=== PATIENT | female | born 1935 | race Caucasian/White ===

== ENCOUNTER → 2016-12-16 | Outpatient (CLI) | payer BC ==
[~2016-12-16] MED LIST: CRS/10 PO; CYAN10004 PO; DILT120C PO; FLUO20CA34 PO; HYDR-3983 PO; LOSA1TAB38 PO; METF-384 PO; OMEP20TA PO; PRED1SUS3 OPR
--- NOTE | 2016-12-16 14:25 | DIAGNOSTIC IMAGING REPORT ---
CHEST 2 VIEWS ROUTINE CLINICAL HISTORY: Bronchitis. COMPARISON STUDY: Chest radiograph December 22, 2015. FINDINGS: A calcified right midlung nodule is unchanged. There is no pneumothorax or pleural effusion. There is mild right lower lung opacity. Left lung is clear. Cardiomediastinal silhouette is normal. There is no evidence of pulmonary edema. IMPRESSION: Suspected mild right lower lung opacity which could reflect a small area of pneumonia. Post treatment radiographs to ensure resolution are recommended. Electronically signed by: Petar Guadarrama M.D. 12/16/2016 2:24 PM Dictated Date/Time: 12/16/2016 2:19 PM
[2016-12-16 17:43] LABS: BLOOD UREA NITROGEN 20 mg/dl (7-18); BUN/CREATININE RATIO 20.5 (10-20); CALCIUM 9.6 mg/dl (8.5-10.1); CARBON DIOXIDE 26 mmol/L (21-32); CHLORIDE 100 mmol/L (98-107); CREATININE 0.98 mg/dl (0.60-1.20); GLUCOSE 154 mg/dl (70-99); POTASSIUM 4.5 mmol/L (3.5-5.1); SODIUM 134 mmol/L (136-145)
[2016-12-16 17:50] LABS: BASO % 0.2 %; BASO ABS # 0.02 K/uL (0-0.2); COMPLETE YES; EOS % 0.2 %; IG% 0.2 %; LYMPH % 13.1 %; LYMPH ABS # 1.67 K/uL (1.2-3.4); MEAN CELL VOLUME 85.3 fL (80-100); MEAN CORPUSCULAR HEMOGLOBIN 29.3 pg (25-34); MEAN CORPUSCULAR HGB CONC 34.3 g/dl (32-36); MEAN PLATELET VOLUME 10.5 fL (7.4-10.4); MONO % 9.2 %; NEUT % 77.1 %; PLATELET COUNT 225 K/uL (130-400); RED BLOOD COUNT 4.34 M/uL (4.2-5.4); WHITE BLOOD COUNT 12.78 K/uL (4.8-10.8)
[2016-12-17 07:34] LABS: ESTIMATED AVERAGE GLUCOSE 143 mg/dl; HA1C FLAG Normal (Normal)
== END | disposition home or self-care (01) ==
LOC: C.RADPV 13:48
PROVIDERS: ATTEND Family Medicine
DX: J40 Bronchitis, not specified as acute or chronic (principal); E11.40 Type 2 diabetes mellitus with diabetic neuropathy, unspecified

== ENCOUNTER → 2017-05-25 | Outpatient (CLI) | payer BC ==
[2017-05-25 12:51] LABS: ESTIMATED AVERAGE GLUCOSE 143 mg/dl; HA1C FLAG Normal (Normal)
[2017-05-25 13:00] LABS: BLOOD UREA NITROGEN 18 mg/dl (7-18); BUN/CREATININE RATIO 21.9 (10-20); CALCIUM 9.7 mg/dl (8.5-10.1); CARBON DIOXIDE 29 mmol/L (21-32); CHLORIDE 104 mmol/L (98-107); CHOLESTEROL 131 mg/dl (0-200); CREATININE 0.84 mg/dl (0.60-1.20); GLUCOSE 127 mg/dl (70-99); POTASSIUM 4.3 mmol/L (3.5-5.1); SODIUM 139 mmol/L (136-145); TRIGLYCERIDES 112 mg/dl (0-150); VERY LOW DENSITY LIPOPROT CALC 22 mg/dl
[2017-05-25 13:03] LABS: CHOLESTEROL/HDL RATIO 2.7; HDL CHOLESTEROL 49 mg/dl; LDL CHOLESTEROL CALCULATED 60 mg/dl
== END | disposition home or self-care (01) ==
LOC: C.LABPVFM 08:32
PROVIDERS: ATTEND Nurse Practitioner
DX: E78.5 Hyperlipidemia, unspecified (principal); E11.40 Type 2 diabetes mellitus with diabetic neuropathy, unspecified; I10 Essential (primary) hypertension

== ENCOUNTER → 2017-07-02 | Outpatient (CLI) | payer BC | END | disposition home or self-care (01) | LOC: C.PATHSPEC 13:11 | PROVIDERS: ATTEND Plastic Surgery | DX: L98.9 Disorder of the skin and subcutaneous tissue, unspecified (principal) ==

== ENCOUNTER → 2017-10-01 | Outpatient (CLI) | payer BC | END | disposition home or self-care (01) | LOC: C.PATHSPEC 18:05 | PROVIDERS: ATTEND Plastic Surgery | DX: L98.9 Disorder of the skin and subcutaneous tissue, unspecified (principal); L82.0 Inflamed seborrheic keratosis ==

== ENCOUNTER → 2017-11-24 | Outpatient (CLI) | payer BC ==
[~2017-11-24] MED LIST changes: +DILT-213 PO; -DILT120C PO
[2017-11-24 13:15] LABS: HEMOGLOBIN A1C 6.4 % (4.5-5.6)
[2017-11-24 13:34] LABS: BLOOD UREA NITROGEN 15 mg/dl (7-18); CALCIUM 9.1 mg/dl (8.5-10.1); CARBON DIOXIDE 26 mmol/L (21-32); CREATININE 0.86 mg/dl (0.60-1.20); GLUCOSE 144 mg/dl (70-99); POTASSIUM 3.9 mmol/L (3.5-5.1); SODIUM 139 mmol/L (136-145)
== END | disposition home or self-care (01) ==
LOC: C.LABPVFM 10:26
PROVIDERS: ATTEND Nurse Practitioner
DX: E11.40 Type 2 diabetes mellitus with diabetic neuropathy, unspecified (principal); I10 Essential (primary) hypertension

== ENCOUNTER 2020-08-02 15:29 | Observation (INO) ==
[2020-08-02] MEDS ORDERED: SODIUM CHLORIDE 0.9% 1000ML 1,000 ML IV ONE (15:44)
[2020-08-02] MEDS ORDERED: CEFEPIME 2,000 MG/20 ML VIAL IV STA (15:44)
--- NOTE | 2020-08-02 15:52 | Emergency Department Note ---
Impression & Plan Epigastric abdominal pain, Acute cholecystitis, Leukocytosis ED Provider Note NAME: SARAVANAN CANADA AGE: 85 SEX: F : 1935 ARRIVES VIA: Walk-In INFORMANT: [Patient] ED PROVIDER(S): [Arya Gorman MD] CHIEF COMPLAINT: Abdominal pain HISTORY OF PRESENT ILLNESS: The patient is an 85-year-old female who has had just over 2 days of epigastric abdominal pain. The pain is a 5 or 6 on a scale of 1 out of 10. The pain is worse to lie down. She has had some chills, no fever. No cough, cold or congestion. No shortness of breath. No urinary complaints or diarrhea. She has no appetite but she has not been vomiting. The patient saw her doctor today. She had lab work done showing a white count of 14,000. She had a CT of the abdomen as an outpatient showing evidence for acute cholecystitis. She was referred to the ED. REVIEW OF SYSTEMS: See HPI for pertinent positives and negatives. A total of ten systems were reviewed and were otherwise negative. PMHx/PSHx: See Below SOCIAL HISTORY: See Below. PHYSICAL EXAM: GENERAL: Patient is in no acute distress. HEENT: No acute trauma, normocephalic atraumatic, mucous membranes moist, no na joes congestion, no scleral icterus. NECK: No stridor, no adenopathy, no meningismus, trachea is midline. LUNGS: Clear to auscultation bilaterally, no wheeze, no rhonchi, breath sounds equal. HEART: Without murmurs gallops or rubs, regular rate and rhythm. ABDOMEN: Soft, moderately tender in the right upper quadrant, bowel sounds positive, no hernias, no peritonitis. EXTREMITIES: No cyanosis or edema, full range of motion of all the joints without pain or difficulty, no signs for acute trauma. NEUROLOGIC: Oriented x 3, no acute motor or sensory deficits, no focal weakness. SKIN: No rash, no jaundice, no diaphoresis. DIFFERENTIAL DIAGNOSIS: Appendicitis, ovarian cyst, ovarian torsion, infections, diverticulitis, UTI, obstruction, mesenteric ischemia, aortic pathology, inflammatory bowel disease, renal colic, PUD, pancreatitis, biliary pathology, hernia, volvulus, constipation, as well as other pathologies. EMERGENCY DEPARTMENT COURSE/PROCEDURES: ECG: Indication was abdominal pain. The ECG shows a normal sinus rhythm with a rate of 75. There is no ST elevation, no PVCs. The QTc is 424. Continuous Cardiac Monitoring: An order was placed for continuous cardiac monitoring. The monitor shows a rate of 91 with normal sinus rhythm. MEDICAL DECISION MAKING: I did review the laboratory work that was performed earlier today. She had a white count elevation at 14.6, this would be consistent with infection. There was a normal hemoglobin and platelet count. Sodium was slightly low at 131, no kidney failure. Alk phos mildly elevated at 118, the bilirubin was normal. Lipase was normal. Urinalysis showed possible infection versus some contamination. Laboratory testing here in the ED showed no coagulopathy. Magnesium slightly low at 1.6. ECG showed a sinus rhythm, no acute ischemia. Cardiac enzyme testing x1 was not consistent with acute cardiac injury. Covid testing was negative. Chest x-ray did not show pneumonia or CHF. There was no free air. I reviewed the abdominal/pelvis CT scan done earlier today as an outpatient. There was evidence for acute cholecystitis. The patient received IV saline for hydration. She was given IV cefepime as empiric antibiotic coverage. I spoke to the on-call surgeon. Hospitalization through medicine with a surgical consult was recommended. The patient is not going to be rushed to the OR for a acute cholecystectomy. I spoke to the patient and her family. I did speak with the disability case manager. The on-call hospitalist was consulted. Past Med/Surg History Medical History Diverticulosis of colon Headache Left carpal tunnel syndrome Multiple pulmonary nodules Nasal sinus congestion Nasal sinus congestion Spinal stenosis Surgical History History of tonsillectomy Family History Other Family history non-contributory Denies family history of Ovarian cancer Prostate cancer Myocardial infarction Breast cancer Colorectal cancer Social History Smoking Status: Former smoker Tobacco Type: Cigarettes Hx Alcohol Use: No Hx Substance Use: No Preferred Language: Mohawk marital status: / Current Living Situation: Alone current occupational status: retired Feels Safe at Home: Yes caffeine: Yes Dental Care, Regularly: Yes Physical Activity Frequency: Does not Exercise Seatbelt Use: always Sunscreen Use: Yes Allergies Allergies Allergy/AdvReac Type Severity Reaction Status Date / Time Penicillins Allergy Unknown unknown Verified 08/02/20 11:24 Sulfa (Sulfonamide Allergy Unknown UNKNOWN Verified 08/02/20 11:24 Antibiotics) amoxicillin Allergy Verified 08/02/20 11:24 metformin Allergy Verified 08/02/20 11:24 empagliflozin AdvReac vaginal Verified 08/02/20 11:24 [From Jardiance] yeast infection recurrent Home Meds Home Medications Medication Instructions Recorded Confirmed diltiazem HCl 120 mg PO DAILY 08/02/20 08/02/20 metformin 500 mg PO BID 08/02/20 08/02/20 multivitamin 1 tab PO QAM 08/02/20 08/02/20 omeprazole 20 mg PO DAILY 08/02/20 08/02/20 rosuvastatin 10 mg PO DAILY 08/02/20 08/02/20 venlafaxine 75 mg PO DAILY 08/02/20 08/02/20 Previous Rx's Medication Instructions Recorded acetaminophen 500 mg tablet 1,000 mg PO Q6H PRN #60 tab 05/02/19 cyanocobalamin (vitamin B-12) 1,000 mcg PO QAM #60 tab 05/02/19 1,000 mcg tablet blood sugar diagnostic #50 ea 11/03/19 dulaglutide 0.75 mg/0.5 mL 0.75 mg SQ .COMPLEX #2 ml 04/10/20 subcutaneous pen injector losartan 100 mg tablet 100 mg PO QAM #90 tab 04/16/20 ciprofloxacin HCl 500 mg tablet 500 mg PO BID #14 tab 08/02/20 Results & Data (ED) Vital Signs Vital Signs - 24 hr 08/02/20 15:31 08/02/20 16:30 Temperature 36.9 C Temperature Source Oral Pulse Rate 93 H Respiratory Rate 18 Respiratory Effort / Characteristics Non-Labored Spontaneous Respiratory Depth Normal Respiratory Pattern Regular Blood Pressure 176/84 H Blood Pressure Mean 114 Blood Pressure Position Sitting Pulse Oximetry 96 95 Oxygen Delivery Method Room Air Room Air Sepsis Recent Fever Within 48 Hours No Sepsis New/Unexplained Change in Mental Status N/A Sepsis Action Taken by Nursing No Action Required Home Medications Current Medication List: was personally reviewed by me Laboratory Data Attestation: I reviewed the patient's lab results. Lab Results 08/02/20 08/02/20 08/02/20 Range/Units 16:10 16:10 16:17 PT 11.9 (9.0-12.0) Seconds INR 1.1 (0.9-1.1) APTT 23.4 (21.0-31.0) Seconds PTT Ratio 0.8 Magnesium 1.6 L (1.8-2.4) mg/dl Troponin I < 0.015 (0-0.045) ng/ml Lipase 183 (73-393) U/L SARS-CoV-2 Ag (Rapid) Negative (Negative) Administered Medications Discontinued Medications Sodium Chloride (Nss 1000ml) 1,000 mls @ 999 mls/hr IV .Q1H1M ONE Stop: 08/02/20 16:44 Last Admin: 08/02/20 16:27 Dose: 999 mls/hr Documented by: [id number] Cefepime HCl (Maxipime) 2,000 mg in 20 mls @ 5 mls/min IV NOW STA; Protocol Stop: 08/02/20 15:47 Last Admin: 08/02/20 16:27 Dose: 5 mls/min Documented by: [id number] Imaging Data Radiologist's Impression: ABDOMEN AND PELVIS CT WITH IV CONTRAST CT DOSE: 524.94 mGy.cm HISTORY: Generalized abdominal pain. TECHNIQUE: Multiaxial CT images of the abdomen and pelvis were performed following the use of intravenous contrast. A dose lowering technique was utilized adhering to the principles of ALARA. COMPARISON STUDY: Abdomen and pelvis CT 11/05/2018. FINDINGS: Scattered subpleural subcentimeter pulmonary nodules remain stable. These are better appreciated on the recent chest CT. No pneumoperitoneum. No pneumatosis. No suspicious lytic are blastic osseous lesions. Small hiatus hernia. Mild hepatic steatosis. No hepatic or splenic masses. The adrenal glands and pancreas are unremarkable. A few bilateral renal hypodense lesions remain stable. These likely represent cysts. No hydronephrosis. Multiple gallstones. Interval development of gallbladder wall thickening, gallbladder distention, and pericholecystic fluid/inflammatory change. Therefore, these findings are highly suspicious for acute cholecystitis. Normal caliber common bile duct. Moderate calcified plaque within the normal caliber abdominal aorta. The bladder is underdistended and therefore not well visualized. The uterus and bilateral adnexa are within normal limits. Colonic diverticulosis. No evidence for acute diverticulitis. No bowel wall thickening or obstruction. Normal appendix. IMPRESSION: 1. The gallbladder is distended and demonstrates gallbladder wall thickening with pericholecystic inflammatory change and fluid. There are multiple large gallstones. This is a new finding from the prior study and is consistent with acute cholecystitis. Surgical consultation recommended. 2. Hepatic steatosis. 3. Stable subcentimeter pulmonary nodules. 4. Small hiatus hernia. 5. Colonic diverticulosis. 6. No bowel wall thickening or obstruction. 7. Normal appendix. XR chest 1V portable HISTORY: 85 years-old Female abd pain acute atypical chest and abdominal pain COMPARISON: CT abdomen and pelvis of same day, chest radiograph 06/13/2015 TECHNIQUE: Portable AP view of the chest FINDINGS: Cardiac silhouette is mildly enlarged. Calcified granuloma projects over the lateral right midlung. No pneumothorax, pleural effusion, airspace consolidation or overt pulmonary edema. The subpleural pulmonary nodule seen on CT of same day are not appreciated by radiography. Degenerative changes of the shoulders and spine. IMPRESSION: Cardiomegaly without acute process. Discharge Plan Visit Data Chief Complaint: Abnormal Labs/Diagnostic Testing Stated Complaint: SENT BY TO ER FOR CT SAYS GALLBLADDER INFECTED ED Provider: Arya Gorman Discharge Problem: Epigastric abdominal pain, Acute cholecystitis, Leukocytosis Patient Disposition: Admitted As Inpatient Condition: Good Forms Stand Alone Forms: My [employer] Prescriptions Prescriptions: No Action (DME) blood sugar diagnostic Strip See Rx Instructions .ROUTE .MEDSUPPLY Qty: 50 RF: 4 Trulicity 0.75 mg/0.5 mL pen injector 0.75 mg SQ .COMPLEX Qty: 2 RF: 5 losartan 100 mg tablet 100 mg PO QAM Qty: 90 RF: 3 ciprofloxacin HCl [Cipro] 500 mg tablet 500 mg PO BID Qty: 14 RF: 0 acetaminophen [Tylenol Extra Strength] 500 mg tablet 1,000 mg PO Q6H PRN (Reason: Pain) Qty: 60 RF: 0 cyanocobalamin (vitamin B-12) [Vitamin B-12] 1,000 mcg tablet 1,000 mcg PO QAM Qty: 60 RF: 0 multivitamin Tablet 1 tab PO QAM RF: 0 venlafaxine 75 mg capsule,extended release 24hr 75 mg PO DAILY RF: 0 diltiazem HCl 120 mg capsule,extended release 24 hr 120 mg PO DAILY RF: 0 omeprazole 20 mg capsule,delayed release(DR/EC) 20 mg PO DAILY RF: 0 metformin 500 mg tablet extended release 24 hr 500 mg PO BID RF: 0 rosuvastatin 10 mg tablet 10 mg PO DAILY RF: 0 Referrals Referrals: Jojo Bermudez CRNP [Primary Care Provider] - Discharge Problem: Leukocytosis Qualifiers: Leukocytosis type: unspecified Qualified Code(s): D72.829 - Elevated white blood cell count, unspecified
--- NOTE | 2020-08-02 16:04 | XRay Report ---
XR chest 1V portable HISTORY: 85 years-old Female abd pain acute atypical chest and abdominal pain COMPARISON: CT abdomen and pelvis of same day, chest radiograph 06/13/2015 TECHNIQUE: Portable AP view of the chest FINDINGS: Cardiac silhouette is mildly enlarged. Calcified granuloma projects over the lateral right midlung. N o pneumothorax, pleural effusion, airspace consolidation or overt pulmonary edema. The subpleural pul monary nodule seen on CT of same day are not appreciated by radiography. Degenerative changes of the shoulders and spine. IMPRESSION: Cardiomegaly without acute process. ACT 112: Negative or not required by law. The above report was generated using voice recognition software. It may contain grammatical, syntax o r spelling errors. Electronically signed by: Conner Sepulveda M.D. 08/02/2020 4:02 PM
[2020-08-02 16:37] LABS: INR 1.1 (0.9-1.1); Partial Thromboplastin Ratio 0.8; Partial Thromboplastin Time 23.4 Seconds (21.0-31.0); Prothrombin Time 11.9 Seconds (9.0-12.0)
[2020-08-02 17:02] LABS: Lipase 183 U/L (73-393); Magnesium 1.6 mg/dl (1.8-2.4); Troponin I < 0.015 ng/ml (0-0.045)
--- NOTE | 2020-08-02 17:33 | History & Physical Report ---
Date of Service August 02, 2020 Assessment & Plan (1) Acute cholecystitis: pt will be admitted continued on Cefepime for Acute cholecystitis,kept NPO with pain medication and hydration General surgical consult with Dr Fernando Patient has known preoperative complaints of chest pain dyspnea on exertion orthopnea or bleeding dyscrasias. Her operative risk is acceptable at this point time to proceed to surgery if deemed appropriate by the surgical team Ct Abd/pelvis 08/02/20 IMPRESSION: 1. The gallbladder is distended and demonstrates gallbladder wall thickening with pericholecystic inflammatory change and fluid. There are multiple large gallstones. This is a new finding from the prior study and is consistent with acute cholecystitis. Surgical consultation recommended. 2. Hepatic steatosis. 3. Stable subcentimeter pulmonary nodules. 4. Small hiatus hernia. 5. Colonic diverticulosis. 6. No bowel wall thickening or obstruction. 7. Normal appendix. (2) Type 2 diabetes, uncontrolled, with renal manifestation: Patient will have dulaglutide and Metformin held insulin sliding scale be employed she is n.p.o. (3) Hypertension: Patient be given losartan 100 and diltiazem 120 with a small sip of water (4) Depression with anxiety: Effexor 75 will be continued with a small sip of water (5) Acid reflux: Patient will have her omeprazole changed to Protonix IV (6) DVT prophylaxis: Patient replaced on SCDs unless surgery is not going to be undertaken then will employ heparin subcu History of Present Illness Primary Care Provider: ARCADIO Sotelo 85-year-old female who has had just over 2 days of epigastric abdominal pain. The pain is a 5 or 6 on a scale of 1 out of 10. The pain is worse to lie down. She has had some chills, no fever. No cough, cold or congestion. No shortness of breath. No urinary complaints or diarrhea. She has no appetite but she has not been vomiting. Allergies Allergy/AdvReac Type Severity Reaction Status Date / Time Penicillins Allergy Unknown unknown Verified 08/02/20 11:24 Sulfa (Sulfonamide Allergy Unknown UNKNOWN Verified 08/02/20 11:24 Antibiotics) amoxicillin Allergy Verified 08/02/20 11:24 metformin Allergy Verified 08/02/20 11:24 empagliflozin AdvReac vaginal Verified 08/02/20 11:24 [From Jardiance] yeast infection recurrent Home Medications Medication Instructions Recorded Confirmed Type acetaminophen 500 mg tablet 1,000 mg PO Q6H PRN #60 tab 05/02/19 08/02/20 Rx cyanocobalamin (vitamin B-12) 1,000 mcg PO QAM #60 tab 05/02/19 08/02/20 Rx 1,000 mcg tablet blood sugar diagnostic #50 ea 11/03/19 08/02/20 Rx dulaglutide 0.75 mg/0.5 mL 0.75 mg SQ .COMPLEX #2 ml 04/10/20 08/02/20 Rx subcutaneous pen injector losartan 100 mg tablet 100 mg PO QAM #90 tab 04/16/20 08/02/20 Rx ciprofloxacin HCl 500 mg tablet 500 mg PO BID #14 tab 08/02/20 08/02/20 Rx diltiazem HCl 120 mg PO DAILY 08/02/20 08/02/20 History metformin 500 mg PO BID 08/02/20 08/02/20 History multivitamin 1 tab PO QAM 08/02/20 08/02/20 History omeprazole 20 mg PO DAILY 08/02/20 08/02/20 History rosuvastatin 10 mg PO DAILY 08/02/20 08/02/20 History venlafaxine 75 mg PO DAILY 08/02/20 08/02/20 History Past Med/Surg History Medical History (Updated 08/02/20 @ 17:32 by Getachew Marin MD) Diverticulosis of colon Headache Left carpal tunnel syndrome Multiple pulmonary nodules Nasal sinus congestion Nasal sinus congestion Spinal stenosis Surgical History History of tonsillectomy Family History Other Family history non-contributory Denies family history of Ovarian cancer Prostate cancer Myocardial infarction Breast cancer Colorectal cancer Social History Smoking Status: Former smoker Tobacco Type: Cigarettes Hx Alcohol Use: No Hx Substance Use: No Preferred Language: Irish marital status: / Current Living Situation: Alone current occupational status: retired Feels Safe at Home: Yes caffeine: Yes Dental Care, Regularly: Yes Physical Activity Frequency: Does not Exercise Seatbelt Use: always Sunscreen Use: Yes Review of Systems Review of Systems: Mild distress and fatigue he has chills with no fever no headache, blurry or double vision no speech or swallowing issues no chest pain, pressure or palpitations no shortness of breath, cough or wheezes Abdominal pain nausea and vomiting no dysuria, hematuria or frequency no focal joint pain or swelling no back pain, CVA tenderness or radicular pain no bruising, bleeding or rashes no focal signs of weakness or numbness or altered sensation no complaints of anxiety or depression. Physical Exam Physical Exam: The patient appeared well nourished and normally developed. Vital signs as documented. Head exam is normocephalic atraumatic no scleral icterus Neck is without JVD, thyromegaly, or carotid bruits. Lungs are clear to auscultation, no focal loss of breath sounds Cardiac exam, Rhythm is regular.. No murmurs, rubs or gallops. Abdominal exam reveals normal bowel sounds, soft non tender, no masses Extremities are nonedematous and both pedal pulses are present Neurologic exam is alert and oriented, no focal loss of strength or sensation Skin is without bruises or rashes Psychologically is without concerns for anxiety or depression. Results & Data Results & Data ([facility]) Vital Signs (Past 12 Hours) Vital Signs Temp Pulse Resp BP Pulse Ox 08/02/20 16:30 95 08/02/20 15:31 98.4 F 93 H 18 176/84 H 96 Code Status & VTE Plan VTE Prophylaxis Plan VTE Prophylaxis will be ordered: Yes PG Care Time/CCT Total # of Minutes Spent Total Time Spent with Patient: Total time spent is greater than 50% in coordination of care (as documented) at patient's floor/unit and/or counseling patient: Coding Level of Care Code 17957 Initial Inpt Care Lvl 2 Diagnoses Acute cholecystitis K81.0 Type 2 diabetes, uncontrolled, with renal manifestation E11.29; E11.65 Hypertension I10 Depression with anxiety F41.8 Acid reflux K21.9 DVT prophylaxis Z29.9
[2020-08-02] MEDS ORDERED: BUPIVACAINE 0.5 % 5 MG/1 ML MPF 30ML VIAL ONE (18:21)
[2020-08-02] MEDS ORDERED: NEOSTIGMINE METHYLSULFATE 5 MG/5 ML SYR ONE (18:23)
[2020-08-02] MEDS ORDERED: DEXAMETHASONE SOD INJ 4 MG/ML VIAL ONE (18:23)
[2020-08-02] MEDS ORDERED: PROPOFOL IV EMULSION 10 MG/ML 20 ML VIAL IV ONE (18:23)
[2020-08-02] MEDS ORDERED: LIDOCAINE HCL 2% 2 ML VIAL/AMP(20MG/ML) INFIL ONE (18:23)
[2020-08-02] MEDS ORDERED: ROCURONIUM BROMIDE 10 MG/ML 5 ML VIAL IV ONE (18:23)
[2020-08-02] MEDS ORDERED: LARYING-O-JET KIT (LTA) ONE (18:23)
[2020-08-02] MEDS ORDERED: ePHEDrine sulfate 50 MG/ML SYR ONE (18:23)
[2020-08-02] MEDS: HEPARIN (PORCINE) 1000 UNIT/ML 10 ML (CATH LAB USE ONLY) ONE ×2 (18:23→20:35)
[2020-08-02] MEDS ORDERED: ONDANSETRON INJ 2 MG/ML 2 ML VIAL ONE (18:23)
[2020-08-02] MEDS ORDERED: GLYCOPYRROLATE 0.2 MG/ML VIAL ONE ×3 (18:23→19:15)
[2020-08-02] MEDS ORDERED: fentaNYL citrate 100 MCG/2 ML VIAL ONE ×2 (18:23→20:21)
--- NOTE | 2020-08-02 18:34 | Surgery Consultation ---
Date of Consultation August 02, 2020 Assessment & Plan (1) Acute cholecystitis: This patient has right upper quadrant pain with cholelithiasis and thickening of the gallbladder wall as well as pericholecystic fluid by CT scan. She is also tender. Her white blood cell count is mildly elevated. This is all consistent with acute cholecystitis. I have recommended laparoscopic cholecystectomy. Of explained to her the procedure and the possible need to convert to an open procedure. We discussed the possible complications and I answered her questions. Her daughter was present during the entire visit. She has signed a consent form. History of Present Illness Reason for Consultation: Acute cholecystitis Requesting Physician: Getachew Marin MD Attending Physician: Rich Marin MD History of Present Illness I have been asked by Dr. Marin to see this 85-year-old female who presented to the emergency room with a complaint of pain centered in the right upper quadrant. The pain began 48 hours ago. It began in the right upper quadrant and has remained there. It had a sharp component to it. She had no vomiting. She had chills but does not know whether or not she had an elevated temperature. She has had some diarrhea recently. There is no melena or hematochezia. She has no dysuria or hematuria. She had an episode like this many years ago. She is unsure as to whether she has had any less severe episodes in between. She had a known diagnosis of cholelithiasis. Allergies Allergy/AdvReac Type Severity Reaction Status Date / Time Penicillins Allergy Unknown unknown Verified 08/02/20 11:24 Sulfa (Sulfonamide Allergy Unknown UNKNOWN Verified 08/02/20 11:24 Antibiotics) amoxicillin Allergy Verified 08/02/20 11:24 metformin Allergy Verified 08/02/20 11:24 empagliflozin AdvReac vaginal Verified 08/02/20 11:24 [From [facility]] yeast infection recurrent Home Medications Medication Instructions Recorded Confirmed Type acetaminophen 500 mg tablet 1,000 mg PO Q6H PRN #60 tab 05/02/19 08/02/20 Rx cyanocobalamin (vitamin B-12) 1,000 mcg PO QAM #60 tab 05/02/19 08/02/20 Rx 1,000 mcg tablet blood sugar diagnostic #50 ea 11/03/19 08/02/20 Rx dulaglutide 0.75 mg/0.5 mL 0.75 mg SQ .COMPLEX #2 ml 04/10/20 08/02/20 Rx subcutaneous pen injector losartan 100 mg tablet 100 mg PO QAM #90 tab 04/16/20 08/02/20 Rx ciprofloxacin HCl 500 mg tablet 500 mg PO BID #14 tab 08/02/20 08/02/20 Rx diltiazem HCl 120 mg PO DAILY 08/02/20 08/02/20 History metformin 500 mg PO BID 08/02/20 08/02/20 History multivitamin 1 tab PO QAM 08/02/20 08/02/20 History omeprazole 20 mg PO DAILY 08/02/20 08/02/20 History rosuvastatin 10 mg PO DAILY 08/02/20 08/02/20 History venlafaxine 75 mg PO DAILY 08/02/20 08/02/20 History Patient History Medical History (Updated 08/02/20 @ 17:32 by Getachew Marin MD) Diverticulosis of colon Headache Left carpal tunnel syndrome Multiple pulmonary nodules Nasal sinus congestion Nasal sinus congestion Spinal stenosis Surgical History (Updated 08/02/20 @ 18:37 by Amari Fernando MD) History of tonsillectomy S/P carpal tunnel release Bilateral Family History Other Family history non-contributory Denies family history of Ovarian cancer Prostate cancer Myocardial infarction Breast cancer Colorectal cancer Social History Smoking Status: Former smoker Tobacco Type: Cigarettes Hx Alcohol Use: No Hx Substance Use: No Preferred Language: Cameroonian marital status: / Current Living Situation: Alone current occupational status: retired Feels Safe at Home: Yes caffeine: Yes Dental Care, Regularly: Yes Physical Activity Frequency: Does not Exercise Seatbelt Use: always Sunscreen Use: Yes Review of Systems Review of Systems: All systems reviewed & are unremarkable except as noted in HPI & below Physical Exam Constitutional: no acute distress Neck: trachea midline Respiratory: normal respiratory effort, lungs clear to auscultation Cardiovascular: Rate/Rhythm: regular rate and regular rhythm Gastrointestinal (Abdomen): Inspection/Auscultation: normal bowel sounds; abdomen not distended Percussion/Palpation: + abdomen tender (Mild to moderate tenderness to moderate palpation in the right upper quadra) and abdomen soft Skin: no rashes, warm and dry Lymphatic: no cervical lymphadenopathy Results & Data ([facility]) Vital Signs (Past 12 Hours) Vital Signs Temp Pulse Resp BP Pulse Ox 08/02/20 17:59 18 158/82 H 98 08/02/20 17:04 96 08/02/20 16:30 79 21 95 08/02/20 16:24 79 19 95 08/02/20 15:31 36.9 C 93 H 18 176/84 H 96 Laboratory Results 08/02/20 08/02/20 08/02/20 Range/Units 16:17 16:10 16:10 PT 11.9 (9.0-12.0) Seconds INR 1.1 (0.9-1.1) APTT 23.4 (21.0-31.0) Seconds PTT Ratio 0.8 Magnesium 1.6 L (1.8-2.4) mg/dl Troponin I < 0.015 (0-0.045) ng/ml Lipase 183 (73-393) U/L SARS-CoV-2 Ag (Rapid) Negative (Negative) WBC 14.63 H&H 14.7 and 43.4 platelet count 284,000 sodium 131 potassium 4.1 chloride 98 CO2 24 BUN 12 creatinine 0.95 glucose 164 total bilirubin 0.8 AST 12 ALT 21 alkaline phosphatase 118 lipase 183 Diagnostic Findings ABDOMEN AND PELVIS CT WITH IV CONTRAST CT DOSE: 524.94 mGy.cm HISTORY: Generalized abdominal pain. TECHNIQUE: Multiaxial CT images of the abdomen and pelvis were performed following the use of intravenous contrast. A dose lowering technique was utilized adhering to the principles of ALARA. COMPARISON STUDY: Abdomen and pelvis CT 11/05/2018. FINDINGS: Scattered subpleural subcentimeter pulmonary nodules remain stable. These are better appreciated on the recent chest CT. No pneumoperitoneum. No pneumatosis. No suspicious lytic are blastic osseous lesions. Small hiatus hernia. Mild hepatic steatosis. No hepatic or splenic masses. The adrenal glands and pancreas are unremarkable. A few bilateral renal hypodense lesions remain stable. These likely represent cysts. No hydronephrosis. Multiple gallstones. Interval development of gallbladder wall thickening, gallbladder distention, and pericholecystic fluid/inflammatory change. Therefore, these findings are highly suspicious for acute cholecystitis. Normal caliber common bile duct. Moderate calcified plaque within the normal caliber abdominal aorta. The bladder is underdistended and therefore not well visualized. The uterus and bilateral adnexa are within normal limits. Colonic diverticulosis. No evidence for acute diverticulitis. No bowel wall thickening or obstruction. Normal appendix. IMPRESSION: 1. The gallbladder is distended and demonstrates gallbladder wall thickening with pericholecystic inflammatory change and fluid. There are multiple large gallstones. This is a new finding from the prior study and is consistent with acute cholecystitis. Surgical consultation recommended. 2. Hepatic steatosis. 3. Stable subcentimeter pulmonary nodules. 4. Small hiatus hernia. 5. Colonic diverticulosis. 6. No bowel wall thickening or obstruction. 7. Normal appendix.
--- NOTE | 2020-08-02 18:40 | Anesthesiology Consultation ---
Date of Service August 02, 2020 Assessment & Plan ASA ASA3 Proposed Anesthesia Anesthesia Type: General Risk / Benefits Reviewed With: PT / POA / Parent / Guardian, Accepts Plan and Informed Consent Obtained History Surgery Operation Date: 08/02/20 18:15 Proposed Procedures p Laparoscopic Cholecystectomy - Amari Fernando MD Height/Weight Height: 5 ft 4 in Weight: 76.8 kg Allergies Allergy/AdvReac Type Severity Reaction Status Date / Time Penicillins Allergy Unknown unknown Verified 08/02/20 11:24 Sulfa (Sulfonamide Allergy Unknown UNKNOWN Verified 08/02/20 11:24 Antibiotics) amoxicillin Allergy Verified 08/02/20 11:24 metformin Allergy Verified 08/02/20 11:24 empagliflozin AdvReac vaginal Verified 08/02/20 11:24 [facility] yeast infection recurrent Medications Home Medications Medication Instructions Recorded Confirmed Last Taken acetaminophen 500 mg tablet 1,000 mg PO Q6H PRN #60 tab 05/02/19 08/02/20 Unknown cyanocobalamin (vitamin B-12) 1,000 mcg PO QAM #60 tab 05/02/19 08/02/20 08/02/20 09:00 1,000 mcg tablet blood sugar diagnostic #50 ea 11/03/19 08/02/20 Unknown dulaglutide 0.75 mg/0.5 mL 0.75 mg SQ .COMPLEX #2 ml 04/10/20 08/02/20 Unknown subcutaneous pen injector losartan 100 mg tablet 100 mg PO QAM #90 tab 04/16/20 08/02/20 08/02/20 09:00 ciprofloxacin HCl 500 mg tablet 500 mg PO BID #14 tab 08/02/20 08/02/20 Unknown diltiazem HCl 120 mg PO DAILY 08/02/20 08/02/20 08/02/20 09:00 metformin 500 mg PO BID 08/02/20 08/02/20 Unknown multivitamin 1 tab PO QAM 08/02/20 08/02/20 Unknown omeprazole 20 mg PO DAILY 08/02/20 08/02/20 Unknown rosuvastatin 10 mg PO DAILY 08/02/20 08/02/20 08/02/20 09:00 venlafaxine 75 mg PO DAILY 08/02/20 08/02/20 08/02/20 09:00 NPO Date Last Intake of Fluids: 08/02/20 Time Last Intake of Fluids: 09:00 Date Last Intake of Solids: 08/02/20 Time Last Intake of Solids: 09:00 Past Medical History Medical History Diverticulosis of colon Headache Left carpal tunnel syndrome Multiple pulmonary nodules Nasal sinus congestion Nasal sinus congestion Spinal stenosis Exercise / Class Metabolic Activity II 4-5 Yardwork/Stairs/Walk up hill Past Family History Family History Other Family history non-contributory Denies family history of Ovarian cancer Prostate cancer Myocardial infarction Breast cancer Colorectal cancer Past Surgical History Surgical History History of tonsillectomy S/P carpal tunnel release Bilateral Past Anesthesia History No Hx of Anesthesia Complications and No Family Hx of Anesthesia Complications History of PONV No Hx of PONV and No Hx of Motion Sickness Social History Smoking Status: Former smoker Hx Alcohol Use: No Hx Substance Use: No Review of Systems denies fever/cough/ colds/ chest pain/ SOB/ RM denies RM Physical Exam Vital Signs Last Vital Signs Temp 37.2 C 08/02/20 18:34 Pulse 96 H 08/02/20 18:34 Resp 16 08/02/20 18:34 BP 133/92 08/02/20 18:34 Pulse Ox 97 08/02/20 18:34 ENMT Mouth: no TMJ abnormality and no dentition abnormality Thyromental Distance: > or= 3.5 Finger Breadths Mallampati Class: II Neck neck extension not limited Respiratory normal respiratory effort; no respiratory distress Auscultation: lungs clear to auscultation bilaterally Cardiovascular Rate/Rhythm: regular rate and regular rhythm Neurologic moves all extremities Psychiatric Orientation: alert and oriented x 3 Testing Laboratory Results PT 11.9 Seconds (9.0-12.0) 08/02/20 16:10 INR 1.1 (0.9-1.1) 08/02/20 16:10 APTT 23.4 Seconds (21.0-31.0) 08/02/20 16:10
[2020-08-02] MEDS ORDERED: HYDROmorphone INJ 2 MG/ML SYR/VIAL IV PRN (19:00)
[2020-08-02] MEDS ORDERED: fentaNYL citrate 100 MCG/2 ML VIAL IV PRN (19:00)
[2020-08-02] MEDS ORDERED: ATROPINE SULFATE 0.1 MG/ML 10ML SYR IV PRN (19:00)
[2020-08-02] MEDS ORDERED: PROMETHAZINE HCL 12.5 MG in SODIUM CHLORIDE 0.9% 50 ML IV PRN (19:00)
[2020-08-02] MEDS ORDERED: ONDANSETRON INJ 2 MG/ML 2 ML VIAL IV PRN ×2 (19:00→22:08)
[2020-08-02] MEDS ORDERED: ePHEDrine sulfate 50 MG/ML AMP IV PRN (19:00)
[2020-08-02] MEDS ORDERED: FLOSEAL HEMOSTATIC MATRIX 10ML TOP ONE (20:25)
--- NOTE | 2020-08-02 21:37 | Anesthesiology Progress Note ---
Date of Service August 02, 2020 Anesthesia Post Procedure Vital Signs Vital Signs: Temp Pulse Pulse Pulse Resp BP BP 08/02/20 21:30 90 18 162/77 H 08/02/20 21:20 87 18 164/57 H 08/02/20 21:10 36.2 C L 96 H 18 103/59 L 08/02/20 18:34 37.2 C 96 H 16 133/92 08/02/20 17:59 18 158/82 H 08/02/20 17:04 08/02/20 16:30 79 21 08/02/20 16:24 79 19 08/02/20 15:31 36.9 C 93 H 18 176/84 H Pulse Ox 08/02/20 21:30 98 08/02/20 21:20 96 08/02/20 21:10 95 08/02/20 18:34 97 08/02/20 17:59 98 08/02/20 17:04 96 08/02/20 16:30 95 08/02/20 16:24 95 08/02/20 15:31 96 Pain Intensity Upper Abdomen: Pain Intensity: 5 Transfer of Care Handoff Completed per policy Notes Mental Status: alert / awake / arousable and participated in evaluation Patient Amnestic to Procedure: Yes Nausea / Vomiting: adequately controlled Pain: adequately controlled Airway Patency, RR, SpO2: stable & adequate BP & HR: stable & adequate Hydration State: stable & adequate Anesthetic Complications: no major complications apparent and Pt Satisfied with anesthetic care
--- NOTE | 2020-08-02 21:58 | Operative Report (OR) ---
DATE OF OPERATION: 08/02/2020 PREOPERATIVE DIAGNOSES: Acute cholecystitis, cholelithiasis. POSTOPERATIVE DIAGNOSES: Acute cholecystitis, cholelithiasis. PROCEDURE: Laparoscopic cholecystectomy. SURGEON: Amari Fernando MD. FINDINGS: The gallbladder was dilated. The cystic duct was not dilated. There were multiple stones and a lot of thick sludge within the gallbladder. The gallbladder wall was thickened. There was a lot of edema. The peritoneum was thickened. The liver was of normal size and contour and the visible bowel appeared normal. TECHNIQUE: The patient was given a general anesthetic and the area was prepped and draped in the usual sterile fashion. The skin inferior to the umbilicus was anesthetized with 0.5% Marcaine. Skin incision was made, carried down through the subcutaneous tissue to the fascia which was grasped with 2 Rashaun clamps and incised between. Hemostasis was obtained at all times using electrocautery. The fascia was incised, the peritoneum was identified, incised, and the introducer was placed bluntly. The abdomen was then insufflated to a pressure of 15 mmHg with carbon dioxide. The sites for the upper midline, midclavicular and anterior axillary introducers were chosen. The skin was anesthetized with 0.5% Marcaine as well as the rest of the layers. The skin incisions were made and the introducers were placed under direct vision. I could not initially grasp the gallbladder and so the drainage needle was placed. There was very little bile removed and that there was enough to allow grasping of the gallbladder and placing upper lateral traction. There were adhesions of the omentum to the fundus, body, neck and infundibulum of the gallbladder. These were linear. They were taken down using blunt cautery dissection where appropriate. That was carried out until I got down to the neck area where there were some flimsy adhesions of the duodenum, which were taken down without the use of cautery. I then was able to grasp the infundibulum of the gallbladder and elevate it. I then opened the peritoneum, which was quite thickened. I divided the peritoneal attachments on the lateral side. There was a lot of thickening of the fatty tissue in the triangle of Calot. The peritoneum, which was also thickened was opened, which allowed a little bit better mobility. I was then able to place some additional upward traction and divide additional attachments laterally and medially. The dissection was performed using cautery and some hydrodissection. This exposed either an anterior branch of the cystic artery or thickened lymphatic which was overlying the anterior surface of the cystic duct. I was able to isolate that structure, clipped and divided. That allowed me then to see the anterior surface of the cystic duct. There was a lot of thickening of the attachments to the liver around and behind the cystic duct and these were taken down in millimeter by millimeter using hydrodissection and cautery where appropriate. This dissection was carried out first laterally then medially. That allowed me then to dissect additional gallbladder away from the liver and create a good window behind the cystic duct and constantly identify the cystic duct gallbladder junction. I placed 2 clips on the proximal cystic duct, one near the junction with the gallbladder and I divided it. I then elevated the neck of the gallbladder and dissected behind it, dissecting it away from the liver again very carefully until I encountered the cystic artery. This was isolated, clipped twice proximally once near the gallbladder and divided. That allowed me then to elevate the gallbladder away from the liver and away from the liver carefully and there was not a good plane to establish between those 2 structures, but I was able to leave the capsule of the liver intact and established a plane between the gallbladder wall and the capsule of the liver. The gallbladder was then carefully peeled off the liver until it was completely . It was placed into an Endobag and brought out through the upper midline incision where I had to open the gallbladder and crush the stones and remove the thick sludge in order to extract the gallbladder within the bag, but I was able to do that. That introducer was replaced and the liver edge was elevated. The gallbladder bed of the liver was inspected. There were 2 areas of oozing that were easily controlled with cautery. In any of the bleeding had occurred from all of the oozing from the inflamed tissue was removed. The subdiaphragmatic and subhepatic spaces were irrigated and the irrigation was removed and that was repeated until the return was clear. I then cut a 10 mm flat Fabio Loaiza to size and brought that out through the anterior axillary introducer site. It was placed in the subhepatic space. It was secured at the skin with 3-0 nylon. The gallbladder bed of the liver was then filled with FloSeal. The gas was allowed to escape and the introducers were removed. The fascia of the umbilical and upper midline introducer sites was closed with interrupted 0 Vicryl and the skin of all the incisions was closed with 4-0 Monocryl in either an interrupted or running subcuticular fashion. The skin was cleansed, dried, benzoin placed, Steri-Strips applied. Estimated blood loss was 20 mL. Sponge, needle and instrument counts were correct prior to closure. The patient tolerated the surgical procedure without complication and was transferred to recovery. I attest to the content of the Intraoperative Record and any orders documented therein. Any exception s are noted below.
[2020-08-02] MEDS ORDERED: GLUCAGON FOR INJ 1 MG VIAL SQ PRN (22:08)
[2020-08-02] MEDS ORDERED: MoRPHine SULFATE 4 MG/ML 1 ML CARP\\VIAL IV PRN (22:08)
[2020-08-02] MEDS ORDERED: DEXTROSE 50% 50 ML SYRINGE IV PRN (22:08)
[2020-08-02] MEDS ORDERED: GLUCOSE 10 TABS/TUBE PO PRN (22:08)
[2020-08-02] MEDS ORDERED: GLUCOSE 40% GEL 15 GM TUBE PO PRN (22:08)
[2020-08-02] MEDS ORDERED: MoRPHine SULFATE 2 MG/ML CARP IV PRN (22:08)
[2020-08-02] MEDS ORDERED: CARBOHYDRATES FOR HYPOGLYCEMIA PO PRN (22:08)
[2020-08-02] MEDS ORDERED: PHARMACY GLYCEMIC MGMT CONSULT PRN (22:22)
[2020-08-02] MEDS ORDERED: INSULIN GLARGINE SOLOSTAR 100 UNITS/ML 3 ML PEN SC ONE (22:30)
[2020-08-02] MEDS: SODIUM CHLORIDE 0.9% 1000ML 1,000 ML IV SCH (22:50)
[2020-08-02] MEDS: INSULIN ASPART 100 UNITS/ML 3 ML PEN SC SCH (23:00)
[2020-08-03] MEDS ORDERED: CEFEPIME 2,000 MG in SYRINGE 0 ML IV SCH (04:00)
[2020-08-03] MEDS ORDERED: INSULIN ASPART 100 UNITS/ML 3 ML PEN SC SCH ×2 (04:00→12:30)
--- NOTE | 2020-08-03 06:03 | Electrocardiogram Report ---
Test Reason : Blood Pressure : / mmHG Vent. Rate : 075 BPM Atrial Rate : 075 BPM P-R Int : 156 ms QRS Dur : 082 ms QT Int : 380 ms P-R-T Axes : 039 006 029 degrees QTc Int : 424 ms Normal sinus rhythm Normal ECG When compared with ECG of 13-JUN-2015 19:22, No significant change was found Confirmed by Thierry Rios ([id number]) on 08/03/2020 6:03:21 AM Referred By: Isabel Hung Confirmed By:Thierry Rios
[2020-08-03] MEDS: SODIUM CHLORIDE 0.9% 1000ML 1,000 ML IV SCH (07:20)
[2020-08-03 08:20] LABS: Hematocrit (blood only) 40.5 % (37-47); Hemoglobin 13.6 g/dL (12.0-16.0); Mean Corpuscular Hemoglobin 29.1 pg (25-34); Mean Corpuscular Hgb Conc 33.6 g/dL (32-36); Mean Corpuscular Volume 86.5 fL (80-100); Mean Platelet Volume 9.8 fL (7.4-10.4); Platelet Count 243 K/uL (130-400); RDW Coefficient of Variation 13.7 % (11.5-14.5); Red Blood Count 4.68 M/uL (4.2-5.4); White Blood Count 12.29 K/uL (4.8-10.8)
[2020-08-03] MEDS ORDERED: INSULIN GLARGINE SOLOSTAR 100 UNITS/ML 3 ML PEN SC ONE (08:30)
[2020-08-03 08:32] LABS: Estimated Average Glucose 166 mg/dl; Hemoglobin A1C 7.4 % (4.5-5.6)
--- NOTE | 2020-08-03 08:42 | Hospitalist Progress Note ---
Date of Service August 03, 2020 Assessment & Plan (1) Acute cholecystitis: pt will be admitted continued on Cefepime for Acute cholecystitis,kept NPO with pain medication and hydration General surgical consult with Dr Fernando Patient has no preoperative complaints of chest pain dyspnea on exertion orthopnea or bleeding dyscrasias. Her operative risk is acceptable at this point time to proceed to surgery if deemed appropriate by the surgical team Ct Abd/pelvis 08/02/20 IMPRESSION: 1. The gallbladder is distended and demonstrates gallbladder wall thickening with pericholecystic inflammatory change and fluid. There are multiple large gallstones. This is a new finding from the prior study and is consistent with acute cholecystitis. Surgical consultation recommended. 2. Hepatic steatosis. 3. Stable subcentimeter pulmonary nodules. 4. Small hiatus hernia. 5. Colonic diverticulosis. 6. No bowel wall thickening or obstruction. 7. Normal appendix. (2) Type 2 diabetes, uncontrolled, with renal manifestation: Patient will have dulaglutide and Metformin held insulin sliding scale be employed she is n.p.o. (3) Hypertension: Patient be given losartan 100 and diltiazem 120 with a small sip of water (4) Depression with anxiety: Effexor 75 will be continued with a small sip of water (5) Acid reflux: Patient will have her omeprazole changed to Protonix IV (6) DVT prophylaxis: Patient replaced on SCDs unless surgery is not going to be undertaken then will employ heparin subcu Admission and Anticipated Discharge Date Admission Date: August 02, 2020 Results & Data Results & Data ([facility]) Vital Signs (Past 12 Hours) Vital Signs Temp Pulse Pulse Resp BP Pulse Ox 08/03/20 08:00 98.1 F 108 H 18 148/85 H 95 08/03/20 04:59 97.9 F 109 H 14 147/80 H 94 08/03/20 00:48 98.1 F 99 H 18 155/82 H 95 08/03/20 00:02 97.9 F 99 H 20 144/79 H 95 08/02/20 23:18 98.2 F 99 H 22 124/74 90 08/02/20 22:40 97.7 F 97 H 20 147/77 H 91 08/02/20 22:00 98.2 F 84 18 153/81 H 98 08/02/20 21:40 97.5 F L 89 16 159/78 H 98 08/02/20 21:30 90 18 162/77 H 98 08/02/20 21:20 87 18 164/57 H 96 08/02/20 21:10 97.2 F L 96 H 18 103/59 L 95 PG Care Time/CCT Total # of Minutes Spent Total Time Spent with Patient: Total time spent is greater than 50% in coordination of care (as documented) at patient's floor/unit and/or counseling patient: Coding Diagnoses Acute cholecystitis K81.0 Type 2 diabetes, uncontrolled, with renal manifestation E11.29; E11.65 Hypertension I10 Depression with anxiety F41.8 Acid reflux K21.9 DVT prophylaxis Z29.9
[2020-08-03] MEDS: INSULIN ASPART 100 UNITS/ML 3 ML PEN SC SCH ×3 (08:49→12:31)
[2020-08-03] MEDS ORDERED: VENLAFAXINE HCL XR 75 MG CAPXR PO SCH (09:00)
[2020-08-03] MEDS ORDERED: dilTIAZem ER 120 MG CAPCR PO SCH (09:00)
[2020-08-03] MEDS ORDERED: LOSARTAN POTASSIUM 50 MG TAB PO SCH (09:00)
[2020-08-03 09:14] LABS: Albumin Level 3.7 gm/dl (3.4-5.0); BUN Creatinine Ratio 11.4 (10-20); Bilirubin,Total 3.4 mg/dl (0.2-1); Calcium 9.3 mg/dl (8.5-10.1); Creatinine Clr Calc Pharmacy 41.8 ml/min; Est GFR (African American) 55.6; Total Protein 7.4 gm/dl (6.4-8.2)
--- NOTE | 2020-08-03 10:13 | Surgery Progress Note ---
Date of Service August 03, 2020 Assessment & Plan (1) Acute cholecystitis: Doing well status post laparoscopic cholecystectomy for acute cholecystitis with cholelithiasis Would increase ambulation Has no nausea or vomiting White blood cell count has returned to normal From surgical standpoint is a candidate for discharge if felt to be so by the internal medicine team Can go home with oral antibiotics Can discontinue KYLE drain prior to discharge. Admission and Anticipated Discharge Date Admission Date: August 02, 2020 Subjective Postoperative day #1 status post laparoscopic cholecystectomy for acute cholecystitis with cholelithiasis Patient is feeling well She has soreness but no sharp pain She has no nausea or vomiting She tolerated diet She has not passed flatus or had a bowel movement Fredi had 15 cc out yesterday postoperatively and has had 50 cc out so far today. It is all serosanguineous. Physical Exam Gastrointestinal (Abdomen): Inspection/Auscultation: + abdominal surgical incision (All are clean dry and intact); abdomen not distended Percussion/Palpation: + abdomen tender (Incisional only) and abdomen soft Results & Data ([facility]) Vital Signs (Past 12 Hours) Vital Signs Temp Pulse Resp BP Pulse Ox 08/03/20 08:00 36.7 C 108 H 18 148/85 H 95 08/03/20 04:59 36.6 C 109 H 14 147/80 H 94 08/03/20 00:48 36.7 C 99 H 18 155/82 H 95 08/03/20 00:02 36.6 C 99 H 20 144/79 H 95 08/02/20 23:18 36.8 C 99 H 22 124/74 90 08/02/20 22:40 36.5 C 97 H 20 147/77 H 91 Laboratory Results 08/03/20 08/03/20 08/03/20 Range/Units 09:42 08:04 07:33 WBC (4.8-10.8) K/uL RBC (4.2-5.4) M/uL Hgb (12.0-16.0) g/dL Hct (37-47) % MCV (80-100) fL MCH (25-34) pg MCHC (32-36) g/dL RDW Std Deviation (36.4-46.3) fL RDW Coeff of Benitez (11.5-14.5) % Plt Count (130-400) K/uL MPV (7.4-10.4) fL PT (9.0-12.0) Seconds INR (0.9-1.1) APTT (21.0-31.0) Seconds PTT Ratio Sodium (136-145) mmol/L Potassium Pending (3.5-5.1) mmol/L Chloride (98-107) mmol/L Carbon Dioxide (21-32) mmol/L Anion Gap (3-11) BUN (7-18) mg/dl Creatinine (0.6-1.2) mg/dl Est Cr Clr Drug Dosing ml/min Est GFR ( Amer) Est GFR (Non-Af Amer) BUN/Creatinine Ratio (10-20) Glucose (70-99) mg/dl POC Glucose 219 H (70-99) mg/dl Estimat Average Glucose 166 mg/dl Hemoglobin A1c 7.4 H (4.5-5.6) % Calcium (8.5-10.1) mg/dl Magnesium (1.8-2.4) mg/dl Total Bilirubin (0.2-1) mg/dl Direct Bilirubin Pending (0-0.2) mg/dl AST Pending (15-37) U/L ALT (12-78) U/L Alkaline Phosphatase (45-117) U/L Troponin I (0-0.045) ng/ml Total Protein (6.4-8.2) gm/dl Albumin (3.4-5.0) gm/dl Lipase (73-393) U/L SARS-CoV-2 Ag (Rapid) (Negative) 08/03/20 08/03/20 08/03/20 Range/Units 07:33 07:33 03:51 WBC 12.29 H (4.8-10.8) K/uL RBC 4.68 (4.2-5.4) M/uL Hgb 13.6 (12.0-16.0) g/dL Hct 40.5 (37-47) % MCV 86.5 (80-100) fL MCH 29.1 (25-34) pg MCHC 33.6 (32-36) g/dL RDW Std Deviation 43.0 (36.4-46.3) fL RDW Coeff of Benitez 13.7 (11.5-14.5) % Plt Count 243 (130-400) K/uL MPV 9.8 (7.4-10.4) fL PT (9.0-12.0) Seconds INR (0.9-1.1) APTT (21.0-31.0) Seconds PTT Ratio Sodium 135 L (136-145) mmol/L Potassium (3.5-5.1) mmol/L Chloride 102 (98-107) mmol/L Carbon Dioxide 26 (21-32) mmol/L Anion Gap 7.0 (3-11) BUN 12 (7-18) mg/dl Creatinine 1.07 (0.6-1.2) mg/dl Est Cr Clr Drug Dosing 41.8 ml/min Est GFR ( Amer) 55.6 Est GFR (Non-Af Amer) 48.0 BUN/Creatinine Ratio 11.4 (10-20) Glucose 202 H (70-99) mg/dl POC Glucose 225 H (70-99) mg/dl Estimat Average Glucose mg/dl Hemoglobin A1c (4.5-5.6) % Calcium 9.3 (8.5-10.1) mg/dl Magnesium (1.8-2.4) mg/dl Total Bilirubin 3.4 H D (0.2-1) mg/dl Direct Bilirubin (0-0.2) mg/dl AST (15-37) U/L ALT 1153 H (12-78) U/L Alkaline Phosphatase 323 H D (45-117) U/L Troponin I (0-0.045) ng/ml Total Protein 7.4 (6.4-8.2) gm/dl Albumin 3.7 (3.4-5.0) gm/dl Lipase (73-393) U/L SARS-CoV-2 Ag (Rapid) (Negative) 08/02/20 08/02/20 08/02/20 Range/Units 22:53 21:18 16:17 WBC (4.8-10.8) K/uL RBC (4.2-5.4) M/uL Hgb (12.0-16.0) g/dL Hct (37-47) % MCV (80-100) fL MCH (25-34) pg MCHC (32-36) g/dL RDW Std Deviation (36.4-46.3) fL RDW Coeff of Benitez (11.5-14.5) % Plt Count (130-400) K/uL MPV (7.4-10.4) fL PT (9.0-12.0) Seconds INR (0.9-1.1) APTT (21.0-31.0) Seconds PTT Ratio Sodium (136-145) mmol/L Potassium (3.5-5.1) mmol/L Chloride (98-107) mmol/L Carbon Dioxide (21-32) mmol/L Anion Gap (3-11) BUN (7-18) mg/dl Creatinine (0.6-1.2) mg/dl Est Cr Clr Drug Dosing ml/min Est GFR ( Amer) Est GFR (Non-Af Amer) BUN/Creatinine Ratio (10-20) Glucose (70-99) mg/dl POC Glucose 243 H 216 H (70-99) mg/dl Estimat Average Glucose mg/dl Hemoglobin A1c (4.5-5.6) % Calcium (8.5-10.1) mg/dl Magnesium (1.8-2.4) mg/dl Total Bilirubin (0.2-1) mg/dl Direct Bilirubin (0-0.2) mg/dl AST (15-37) U/L ALT (12-78) U/L Alkaline Phosphatase (45-117) U/L Troponin I (0-0.045) ng/ml Total Protein (6.4-8.2) gm/dl Albumin (3.4-5.0) gm/dl Lipase (73-393) U/L SARS-CoV-2 Ag (Rapid) Negative (Negative) 08/02/20 08/02/20 Range/Units 16:10 16:10 WBC (4.8-10.8) K/uL RBC (4.2-5.4) M/uL Hgb (12.0-16.0) g/dL Hct (37-47) % MCV (80-100) fL MCH (25-34) pg MCHC (32-36) g/dL RDW Std Deviation (36.4-46.3) fL RDW Coeff of Benitez (11.5-14.5) % Plt Count (130-400) K/uL MPV (7.4-10.4) fL PT 11.9 (9.0-12.0) Seconds INR 1.1 (0.9-1.1) APTT 23.4 (21.0-31.0) Seconds PTT Ratio 0.8 Sodium (136-145) mmol/L Potassium (3.5-5.1) mmol/L Chloride (98-107) mmol/L Carbon Dioxide (21-32) mmol/L Anion Gap (3-11) BUN (7-18) mg/dl Creatinine (0.6-1.2) mg/dl Est Cr Clr Drug Dosing ml/min Est GFR ( Amer) Est GFR (Non-Af Amer) BUN/Creatinine Ratio (10-20) Glucose (70-99) mg/dl POC Glucose (70-99) mg/dl Estimat Average Glucose mg/dl Hemoglobin A1c (4.5-5.6) % Calcium (8.5-10.1) mg/dl Magnesium 1.6 L (1.8-2.4) mg/dl Total Bilirubin (0.2-1) mg/dl Direct Bilirubin (0-0.2) mg/dl AST (15-37) U/L ALT (12-78) U/L Alkaline Phosphatase (45-117) U/L Troponin I < 0.015 (0-0.045) ng/ml Total Protein (6.4-8.2) gm/dl Albumin (3.4-5.0) gm/dl Lipase 183 (73-393) U/L SARS-CoV-2 Ag (Rapid) (Negative)
[2020-08-03 10:35] LABS: Potassium 3.9 mmol/L (3.5-5.1)
[2020-08-03 10:48] LABS: Bilirubin Direct 2.7 mg/dl (0-0.2)
[2020-08-03] MEDS ORDERED: PANTOprazole 40 MG in SYRINGE 0 ML IV SCH (11:00)
--- NOTE | 2020-08-03 13:28 | Pharmacy Report ---
Glycemic Control Consultation - Date of Service August 03, 2020 - Scope Scope: Glycemic Pharmacist consulted for glycemic control and to write orders per [facility] inpatient glycemic control protocol. - Objective Weight: 84 kg Accuchecks BSG (last 24hrs): 08/02/20 08/02/20 08/03/20 21:18 22:53 03:51 Glucose POC Glucose 216 H 243 H 225 H 08/03/20 08/03/20 08/03/20 07:33 08:04 11:52 Glucose 202 H POC Glucose 219 H 93 Laboratory Data (last 24hrs): 08/03/20 08/03/20 07:33 09:42 Potassium 3.9 Carbon Dioxide 26 Anion Gap 7.0 Creatinine 1.07 Est Cr Clr Drug Dosing 41.8 HbA1c: Hemoglobin A1c 7.4 % (4.5-5.6) H 08/03/20 07:33 - Recent Pertinent Medications Outpatient Anti-diabetic Regimen: * Trulicity 0.75 mg SQ weekly * metformin ER 500 mg BID * A1c = 7.5 % 07/12/20 The patient is currently receiving: * Basal insulin: Lantus 10 units x 1 * Correctional Insulin: Novolog Correction per scale ACHS Goal Range: Low 110 mg/dL - High 140 mg/dL Correction Factor: 20 mg/dL/unit * Prandial insulin: Per carb ratio of 1 unit per 10 grams CHO consumed Risk Factors for Insulin Resistance: * Recent Surgery: POD 1 for lap lee * Diet: clear liquid - Assessment & Plan Assessment & Plan: ASSESSMENT: * Ms Martin is an 85 y/o F with a PMH of moderately controlled T2DM who presents for acute cholecystitis. Patient POD1 for cholecystectomy. * Patient's BSGs elevated overnight with BSGs [phone] (BSG this morning). Patient received 10 units of Lantus last night and 9 units of Novolog. * Will give additional 15 units of Lantus this morning to equal load of ~25 units of Lantus. Start once daily Lantus tomorrow morning. * Novolog weight-based stress of 2. * Hold oral medications since patient s/p surgery PLAN FOR INPATIENT GLYCEMIC CONTROL: * Holding outpatient oral diabetes medications * Basal insulin * Lantus 15 units SQ x 1 then 0-15 units SQ qAM * Bolus insulin * NovoLog per scale ACHS or Q6hrs while NPO * Goal Range: Low 110 mg/dL - High 140 mg/dL * Correction Factor: 30 mg/dL/unit * Nutritional / Prandial insulin per carb ratio of 1 unit per 10 grams CHO consumed RECOMMENDATIONS FOR DISCHARGE * Patient's HbA1C moderately controlled for age. Recommend maximum tolerated dose of metformin ER (1000 mg PO BID). Recommend titrating upwards by 500 mg weekly until this dose is reached. Thank you.
--- NOTE | 2020-08-03 16:42 | Discharge Summary ---
Date of Service August 03, 2020 Admission HPI Per Admitting Provider 85-year-old female who has had just over 2 days of epigastric abdominal pain. The pain is a 5 or 6 on a scale of 1 out of 10. The pain is worse to lie down. She has had some chills, no fever. No cough, cold or congestion. No shortness of breath. No urinary complaints or diarrhea. She has no appetite but she has not been vomiting. Principal Diagnosis Cholecystitis status post cholecystectomy Discharge Exam The patient appeared well Vital signs as documented. Lungs are clear to auscultation and appear unlabored Cardiac exam, Rhythm is regular.. No murmurs, rubs or gallops. Abdominal exam reveals minor tenderness for access points 3 with Steri-Strips 1 with a drain which we removed for for discharge Extremities are nonedematous and both pedal pulses are normal. Neurologic exam is alert and oriented, no focal loss of strength or sensation Skin is without bruises or rashes Psychologically is without concerns for anxiety or depression. Discharge Data Allergies Allergy/AdvReac Type Severity Reaction Status Date / Time Penicillins Allergy Unknown unknown Verified 08/02/20 11:24 Sulfa (Sulfonamide Allergy Unknown UNKNOWN Verified 08/02/20 11:24 Antibiotics) amoxicillin Allergy Verified 08/02/20 11:24 metformin Allergy Verified 08/02/20 11:24 empagliflozin AdvReac vaginal Verified 08/02/20 11:24 [From Jardiance] yeast infection recurrent Consultations 08/02/20 16:10 ED Decision to Admit Stat 08/02/20 16:11 Consult General Surgery Stat 08/02/20 22:08 Consult General Surgery Routine Procedures Performed Operation Date: 08/02/20 18:15 Actual Procedures p Laparoscopic Cholecystectomy(Not Applicable) - Amari Fernando MD Hospital Course (1) Acute cholecystitis: pt was admitted continued on antibiotics for Acute cholecystitis, General surgical consult with Dr Fernando Patient had laparoscopic cholecystectomy in the evening of 08/02/2020 did well postoperatively was able to walk and tolerate clear liquids will go home on ciprofloxacin with outpatient follow-up. Surgery did instructed the patient was supposed to have her drain removed prior to going home Ct Abd/pelvis 08/02/20 IMPRESSION: 1. The gallbladder is distended and demonstrates gallbladder wall thickening with pericholecystic inflammatory change and fluid. There are multiple large gallstones. This is a new finding from the prior study and is consistent with acute cholecystitis. Surgical consultation recommended. 2. Hepatic steatosis. 3. Stable subcentimeter pulmonary nodules. 4. Small hiatus hernia. 5. Colonic diverticulosis. 6. No bowel wall thickening or obstruction. 7. Normal appendix. (2) Type 2 diabetes, uncontrolled, with renal manifestation: Patient will resume dulaglutide and Metformin (3) Hypertension: Continues on losartan 100 and diltiazem 120 (4) Depression with anxiety: Effexor 75 will be continued (5) Acid reflux: Patient will have her omeprazole continued Total Time Total Time Spent Total Time Spent (In Minutes): It required greater than 30 minutes to prepare this patient for discharge Discharge Plan Discharge Items Patient Disposition: Home - Self-Care Reason For Visit: ACUTE CHOLECYSTITIS Discharge Diagnosis: acute cholecystitis, with removal of gall bladder Condition on Discharge: Good Activity: As commented below Non-emergency contact: Primary Care Provider and Surgeon Call non-emergency contact if: you have any medication questions and your symptoms worsen Follow-up/Referrals: Jojo Bermudez CRNP [Primary Care Provider] - 08/07/20 11:30 am Amari Fernando MD [Physician] - 08/20/20 11:30 am Diet: Regular Addtl Attending Provider Instructions: please start with a liquid diet and slowly advance to regular low fat diet Addtl Flexographic Press Operator Provider Instructions: Post-Surgical ~Discharge Instructions Activity Recommendations: - lifting limitation: (10 pounds for 2 weeks), - exercise/sex/sports limit: (nonstrenuous for 2 weeks), - driving or machine use limit: (none for 1 week), - Shower/bathe limit: (may shower beginning tomorrow) Diet: - Resume previous diet SPECIAL CARE INSTRUCTIONS: - May shower in 24 hours. Let water run over area and pat dry. - Leave steri strips on for one week. - Call the surgeon's office with any questions or concerns - - (ex. temperature higher than 101 degrees F, excessive bleeding or pain). MEDICATIONS: - Resume previous medications unless instructed otherwise by your surgeon. - Percocet 1 every 4 hours, as needed for pain FOLLOW UP VISIT: - Please call the office to schedule a two week follow-up appointment. Office number Pending Studies at Discharge: Yes Studies:: Pathology Stand-Alone Forms: [facility], Opioid Pain Management, Work/School Release (Inpt), Smoking Cessation Medications and DC Order Prescriptions: New oxycodone-acetaminophen [Percocet] 5-325 mg tablet 1 tab PO Q6H PRN (Reason: pain) Qty: 5 RF: 0 Continued (DME) blood sugar diagnostic Strip See Rx Instructions .ROUTE .MEDSUPPLY Qty: 50 RF: 4 Trulicity 0.75 mg/0.5 mL pen injector 0.75 mg SQ .COMPLEX Qty: 2 RF: 5 losartan 100 mg tablet 100 mg PO QAM Qty: 90 RF: 3 acetaminophen [Tylenol Extra Strength] 500 mg tablet 1,000 mg PO Q6H PRN (Reason: Pain) Qty: 60 RF: 0 cyanocobalamin (vitamin B-12) [Vitamin B-12] 1,000 mcg tablet 1,000 mcg PO QAM Qty: 60 RF: 0 multivitamin Tablet 1 tab PO QAM RF: 0 venlafaxine 75 mg capsule,extended release 24hr 75 mg PO DAILY RF: 0 diltiazem HCl 120 mg capsule,extended release 24 hr 120 mg PO DAILY RF: 0 omeprazole 20 mg capsule,delayed release(DR/EC) 20 mg PO DAILY RF: 0 metformin 500 mg tablet extended release 24 hr 500 mg PO BID RF: 0 rosuvastatin 10 mg tablet 10 mg PO DAILY RF: 0 ciprofloxacin HCl [Cipro] 500 mg tablet 500 mg PO BID Qty: 14 RF: 0 Discharge Orders: Discharge Order (Routine); Ordered 08/03/20 Ordered By: Getachew Grijalva/Other Patient Handouts: Low-Fat Cooking Tips, After Gallbladder Surgery, ED Diet, Low Fat Admission Data Admit Date/Time: 08/02/20 18:24 Attending Provider: Getachew Marin Admit Provider: Getachew Marin Primary Care Provider: Jojo Bermudez Other Providers: Amari Fernando ; Nilton Schrodeer Other Interventions: Discharge Summary Assessment (RN) Last Done: 08/03/20 13:53 Coding Level of Care Code D/C Day Management >30 mins Diagnoses Acute cholecystitis K81.0 Type 2 diabetes, uncontrolled, with renal manifestation E11.29; E11.65 Hypertension I10 Depression with anxiety F41.8 Acid reflux K21.9
[2020-08-04] MEDS ORDERED: INSULIN GLARGINE SOLOSTAR 100 UNITS/ML 3 ML PEN SC SCH (09:00)
== END 2020-08-03 14:58 | disposition home or self-care (01) | DRG 419 ==
LOC: ED 15:29 → OR 18:23 → INTOOBSV 18:24 → 3W 18:24